=== PATIENT | male | born 1955 | race Caucasian/White ===

== ENCOUNTER 2018-08-16 15:14 | Outpatient (CLI) | payer OTHER ==
--- NOTE | 2018-08-17 09:02 | XRAY Report ---
Reason: COUGH Procedure Date: 08/16/2018 Accession Number: [id number] / [id number] Procedure: XRN - Chest 2 View X-Ray CPT Code: 40287 FULL RESULT: EXAM: CHEST RADIOGRAPHY EXAM DATE: 08/16/2018 03:34 PM. CLINICAL HISTORY: Cough. COMPARISON: None. TECHNIQUE: 2 views. FINDINGS: Lungs/Pleura: No focal opacities evident. No pleural effusion. No pneumothorax. Normal volumes. Mediastinum: Heart and mediastinal contours are unremarkable. Other: None. IMPRESSION: Normal 2-view chest radiography. [facility]
== END 2018-08-16 15:15 | disposition home or self-care (01) ==
LOC: DI.N 15:14
PROVIDERS: ATTEND Internal Medicine
DX: R05 Cough (principal)
CPT/HCPCS: 71046

== ENCOUNTER 2019-07-12 09:49 | Outpatient (CLI) | payer OTHER | END 2019-07-12 09:50 | disposition home or self-care (01) | LOC: DI 09:49 | PROVIDERS: ATTEND Internal Medicine | DX: Z53.9 Procedure and treatment not carried out, unspecified reason (principal) ==